=== PATIENT | female | born 1940 | race Native Hawaiian/Other Pacific Islander ===

== ENCOUNTER 2016-04-28 22:11 | Emergency (ER) | payer OTHER ==
[~2016-04-28] VITALS: Ht 177.8 cm; Wt 53.1 kg
[~2016-04-28 22:11] MED LIST: ACID REDUCER150 MG PO; ALBU90AE13 INH; ALBUSOL INH; BREO ELLIPTA 101 INH INH; DOCU100C10 PO; HYDR5TAB9 PO; IPRASOL5 INH; LORA0.5T17 PO; LORA1TAB17 PO; OLAN10TA2 PO; OXYGEN; SEROQUEL25 MG PO; SERT100T PO; [UNRECOGNIZED DRUG - REMARK]
[2016-04-28] MEDS ORDERED: OLAN10TA2 PO ×2 (22:43→22:45)
[2016-04-28] MEDS ORDERED: MACROBID100 MG PO (22:45)
[2016-04-28] MEDS ORDERED: FIBER LAXATIV0.52 GM PO (22:47)
[2016-04-28] MEDS ORDERED: PANT40TA PO (22:47)
[2016-04-28] MEDS ORDERED: NICODIS TD (22:48)
[2016-04-28] MEDS ORDERED: LEXAPRO20 MG PO (22:49)
[2016-04-28] MEDS ORDERED: DONE5TAB PO (22:50)
[2016-04-28] MEDS ORDERED: MEMA5TAB PO (22:51)
[2016-04-28] MEDS ORDERED: ALUMSUS6 PO (22:52)
[2016-04-28] MEDS ORDERED: TYLENOL325 MG PO (22:53)
[2016-04-28] MEDS ORDERED: MAGNSUS68 PO (22:54)
[2016-04-28] MEDS ORDERED: EMOLOIN22 TOP (22:55)
[2016-04-28] MEDS ORDERED: INSU100P SC (23:00)
[2016-04-28] MEDS ORDERED: HALO5INJ3 IM ×2 (23:01→23:02)
[2016-04-28] MEDS ORDERED: LORA2INJ INJ (23:03)
[2016-04-28 23:41] VITALS: BP 129/65; TEMP 98.7
== END 2016-04-28 23:42 | disposition other institution (70) ==
LOC: ED 22:11
DX: R07.89 Other chest pain (principal)
CPT/HCPCS: 99282